=== PATIENT | male | born 1995 | race Caucasian/White ===

== ENCOUNTER 2017-08-06 20:47 | Emergency (ER) | payer OTHER ==
[2017-08-06 21:04] VITALS: BP 104/64
--- NOTE | 2017-08-06 21:08 | ER Report ---
History and Physical Time Seen By MD: 21:08 Hx. of Stated Complaint: PATIENT WAS PLAYING SOCCER AND JAMMED HIS RIGHT THUMB HPI/ROS CHIEF COMPLAINT: thumb injury HISTORY OF PRESENT ILLNESS: This is a 21 year old male. He was playing soccer, and jammed his right thumb. Pain with movement. No swelling or skin breakdown. Mainly at the base of his thumb. Allergies: Coded Allergies: No Known Drug Allergies (Unverified , 08/06/17) Reviewed Nurses Notes: Yes Hx Substance Use Disorder: No Hx Alcohol Use: No Constitutional Vital Sign - Last 24 Hours 08/06/17 21:04 Temp 98.4 Pulse 95 Resp 20 B/P (MAP) 104/64 Pulse Ox 96 Physical Exam General: Alert, no acute distress. Musculoskeletal: Pain in mcp and pip joints. Normal movement, but with pain. Cardiovascular: normal cap refill Skin: No skin breakdown. Neuro: normal sensation. Medical Decision Making EKG/Imaging Imaging Right thumb: Indication: Injury. Technique: 3 views were obtained. Comparison: None. Findings: There is no evidence of fracture, dislocation, or other acute deformity. There is normal mineralization of the skeletal structures. There is no evidence of soft tissue deformity. IMPRESSION: No acute deformity. Report Dictated By: Chip Oakes MD at 08/06/2017 9:46 PM ED Course/Re-evaluation ED Course Discussed x-ray results with the patient. See instructions below Decision to Disposition Date: Aug 06, 2017 Decision to Disposition Time: 22:11 Depart Departure Latest Vital Signs Vital Signs Date Time Temp Pulse Resp B/P (MAP) Pulse Ox O2 Delivery O2 Flow Rate FiO2 08/06/17 21:04 98.4 95 20 104/64 96 Impression: Primary Impression: Thumb sprain Condition: Improved Disposition: HOME OR SELF-CARE Patient Instructions: Finger Sprain (ED) Additional Instructions: Ibuprofen 200mg over the counter tablets, take 4 tablets three times a day with food. Apply ice 20 minutes every 1-2 hours while awake. Rest the injured area, keep it elevated while at rest. Begin gentle range of motion exercises. Over the counter creams that can help include Icyhot, BioFreeze, or others. Problem Qualifiers Primary Impression: Thumb sprain Encounter type: initial encounter Sprain of finger site: interphalangeal joint Laterality: right Qualified Codes: S63.621A - Sprain of interphalangeal joint of right thumb, initial encounter NAOMY CANTRELL MD Aug 06, 2017 21:08
--- NOTE | 2017-08-06 21:52 | RADIOLOGY IMAGING REPORT ---
FACILITY: [facility] - [place] PATIENT NAME: Yoav Borrero : 1995 MR: [id number] V: [id number] EXAM DATE: ORDERING PHYSICIAN: NAOMY CANTRELL TECHNOLOGIST: Location: [facility] Patient: Yoav Borrero : 1995 Visit/Account:[id number] Date of Sevice: 08/06/2017 Right thumb: Indication: Injury. Technique: 3 views were obtained. Comparison: None. Findings: There is no evidence of fracture, dislocation, or other acute deformity. There is normal mi neralization of the skeletal structures. There is no evidence of soft tissue deformity. IMPRESSION: No acute deformity. Report Dictated By: Chip Oakes MD at 08/06/2017 9:46 PM Report E-Signed By: Chip Oakes MD at 08/06/2017 9:48 PM WSN:[id number]
== END 2017-08-06 22:24 | disposition home or self-care (01) ==
LOC: ER 21:09
DX: S63.621A Sprain of interphalangeal joint of right thumb, initial encounter (principal); Y93.66 Activity, soccer
CPT/HCPCS: 99283

== ENCOUNTER 2018-03-20 18:39 | Emergency (ER) | payer OTHER ==
[2018-03-20] MEDS ORDERED: IBUPROFEN 800 MG TAB PO ONE (19:00)
[2018-03-20] MEDS ORDERED: ACETAMINOPHEN 325 MG TAB PO ONE (19:00)
--- NOTE | 2018-03-20 19:40 | ER Report ---
History and Physical Time Seen By MD: 19:05 Hx. of Stated Complaint: fall down stairs, c/o left side pain, HPI/ROS CHIEF COMPLAINT: Back pain, fall downstairs HISTORY OF PRESENT ILLNESS: 22-year-old male presents after mechanical fall down a half a flight of stairs. Patient states he was admitted point of stairs and wearing shoes that did not fit correctly when he fell primarily onto his left side. He tried to catch himself with his left hand but his left lower back/hip token most of the brunt of the fall. Patient denies striking head or passing out, though states he was lightheaded initially upon standing. He was able to stand by himself. He initially tried to walk it off but realized that he was having quite a bit of pain during walking. His pain at the worst is 7 out of 10, at rest is 3 out of 10. Patient complains of pain lower left hip and buttock. The pain does not radiate to the leg. He denies chest pain, shortness of breath, nausea, vomiting, abdominal pain. He has urinated and there is no blood in the urine. He has not had similar fall. He denies alcohol use today or intoxication. He denies drugs other than marijuana. He has no medical problems, no medications, no allergies. He believes his immunizations are up-to-date though cannot clearly identify his last tetanus shot date. REVIEW OF SYSTEMS: Constitutional: No fever, no chills. Eyes: no blurred vision ENT: No sore throat. Cardiovascular: No chest pain, no palpitations. Respiratory: No cough, no shortness of breath. Gastrointestinal: No abdominal pain, no vomiting. Genitourinary: No hematuria. Musculoskeletal: 04/25 ttp Skin: No rashes. Neurological: No headache. Remainder of the 14 system rev: Yes Allergies: Coded Allergies: No Known Drug Allergies (Unverified , 03/20/18) Home Meds No Active Prescriptions or Reported Meds Hx Substance Use Disorder: No Hx Alcohol Use: No Constitutional Vital Sign - Last 24 Hours 03/20/18 18:49 Temp 99.4 Pulse 68 Resp 18 B/P (MAP) 96/62 Pulse Ox 92 O2 Delivery Room Air Physical Exam General Appearance: The patient is alert, has no immediate need for airway protection and no signs of toxicity. Eyes: Pupils equal and round no pallor or injection. ENT, Mouth: Mucous membranes are moist. Respiratory: There are no retractions, lungs are clear to auscultation. Cardiovascular: Regular rate and rhythm. Gastrointestinal: Abdomen is soft and non tender, no masses, bowel sounds no rmal. Neurological: alert, oriented, moves all ext Skin: Warm and dry, no rashes. Musculoskeletal: Neck is supple non tender. No spine ttp throughout. Pt has ttp over posterior superior iliac spine without clear stepoff. Pain radiates to upper mid gluteus but no hip/femur pain, no sciatic ttp. Extremities are nontender, nonswollen and have full range of motion. neg SLR, 5/5 ms throughout LE bilaterally DIFFERENTIAL DIAGNOSIS: After history and physical exam differential diagnosis was considered for spine/pelvis fracture, contusion, dislocation, or other emergent result of fall. Medical Decision Making EKG/Imaging Imaging X-ray: pelvis, lumbar was obtained. I viewed the images myself on the PACS system. My interpretation of the images is: no fracture. The radiologist interpretation is pending at the time of this interpretation. ED Course/Re-evaluation ED Course 22-year-old male presents after fall with primary area of impact left pelvis. Tenderness is primarily left PSIS, and left superior gluteal. There is no evidence of contusion, ecchymosis, or bony step-off. Given the mechanism and location, fracture would be very unlikely, however due to bony tenderness x-rays are ordered. My review of x-rays shows no evidence of fracture. Patient ambulates after ED evaluation without difficulty. Will DC with supportive treatment and strict return precautions. Decision to Disposition Date: Mar 20, 2018 Decision to Disposition Time: 20:12 Depart Departure Latest Vital Signs Vital Signs Date Time Temp Pulse Resp B/P (MAP) Pulse Ox O2 Delivery O2 Flow Rate FiO2 03/20/18 18:49 99.4 68 18 96/62 92 Room Air Impression: Primary Impression: Contusion of left hip Condition: Improved Disposition: HOME OR SELF-CARE New Scripts No Active Prescriptions or Reported Meds Patient Instructions: Hip Contusion (ED) Additional Instructions: As we discussed, I recommend ice 20 minutes at time 3 times daily, ibuprofen 600 mg every 8 hours, acetaminophen 650 mg every 4-6 hours, and return to normal activity as tolerated. Please return for uncontrolled pain, new weakness, or any concerns. Problem Qualifiers Primary Impression: Contusion of left hip Encounter type: initial encounter Qualified Codes: S70.02XA - Contusion of left hip, initial encounter JITENDRA ADEN MD Mar 20, 2018 19:40
[2018-03-20 20:30] VITALS: BP 106/63
--- NOTE | 2018-03-20 20:50 | RADIOLOGY IMAGING REPORT ---
[place] [facility] [place] Yoav Borrero : 1995 MR: [id number] V: [id number] EXAM DATE: ORDERING PHYSICIAN: JITENDRA ADEN TECHNOLOGIST: Location: [facility] - [place] Patient: Yoav Borrero : 1995 Visit/Account:[id number] Date of Sevice: 03/20/2018 L-SPINE 2 OR 3 VIEW INDICATION: Back pain after fall. COMPARISON: None available FINDINGS: AP view the lumbar spine. There are 5 nonrib-bearing lumbar vertebral bodies. The vertebr al bodies are aligned. No compression fractures, bony lesions or spondylolysis. No degenerative [place] es. The endplates are maintained. The pedicles are well seen. Soft tissues are unremarkable. IMPRESSION: Normal exam. Report Dictated By: Khari Hammer at 03/20/2018 8:44 PM Report E-Signed By: Khari Hammer at 03/20/2018 8:45 PM WSN:[id number]
--- NOTE | 2018-03-20 20:53 | RADIOLOGY IMAGING REPORT ---
FACILITY: [facility] PATIENT NAME: Yoav Borrero : 1995 MR: [id number] V: [id number] EXAM DATE: ORDERING PHYSICIAN: JITENDRA ADEN TECHNOLOGIST: Location: [facility] Patient: Yoav Borrero : 1995 Visit/Account:[id number] Date of Sevice: 03/20/2018 PELVIS INDICATION: Pain after fall. COMPARISON: None available FINDINGS: 3 views of the pelvis. No fractures or dislocation. Hips are symmetric. No aggressive bon y lesions. Bone island seen in the right femoral neck. Sacral miguel appear intact and symmetric. Visua lized SI joints are unremarkable. Soft tissues are unremarkable. IMPRESSION: No acute abnormality. Report Dictated By: Khari Hammer at 03/20/2018 8:45 PM Report E-Signed By: Khari Hammer at 03/20/2018 8:47 PM WSN:[id number]
== END 2018-03-20 20:59 | disposition home or self-care (01) ==
LOC: ER 18:44
DX: S70.02XA Contusion of left hip, initial encounter (principal); W18.30XA Fall on same level, unspecified, initial encounter
CPT/HCPCS: 72100; 72170; 99284